=== PATIENT | female | born 2000 | race Caucasian/White ===

== ENCOUNTER → 2023-06-06 | Outpatient (CLI) | payer OTHER ==
--- NOTE | 2023-06-06 17:49 | XR ---
EXAMINATION TYPE: XR ankle complete RT DATE OF EXAM: 06/06/2023 COMPARISON: NONE HISTORY: Pain TECHNIQUE: Frontal, lateral and oblique images of the right ankle are obtained. Alignment of the COMPARISON: None. FINDINGS: There is no acute fracture/dislocation evident. The joint spaces appear within normal puentes its. The overlying soft tissue appears unremarkable. IMPRESSION: There is no acute fracture or dislocation seen.
== END | disposition home or self-care (01) ==
LOC: RADXRMAIN 15:20
PROVIDERS: ATTEND Registered Nurse
DX: M25.571 Pain in right ankle and joints of right foot (principal)

== ENCOUNTER 2024-07-31 03:22 | Outpatient (CLI) | payer BC ==
[2024-07-31] MEDS: LACTATED RINGERS 1,000 ML IV ONE ×3 (04:00→05:50)
[2024-07-31 05:12] LABS: Bacteria,Urine Few /hpf; Hyaline Casts,Urine 1 /lpf (0-2); Mucus,Urine Rare /hpf; RBC,Urine 1 /hpf (0-5); Squamous Epithelial Cell,Urine 11 /hpf (0-4); WBC,Urine 11 /hpf (0-5)
[2024-07-31 05:23] LABS: Color,Urine Yellow
[2024-07-31 05:24] LABS: Appearance,Urine Slightly Cloudy (Clear); Bilirubin,Urine Negative (Negative); Glucose,Urine (UA) Negative (Negative); Ketones,Urine 3+ (Negative); PH, Urine 6.5 (5.0-8.0); Protein,Urine 1+ (Negative); Specific Gravity,Urine 1.015 (1.001-1.035)
[2024-07-31 05:25] LABS: Blood,Urine Negative (Negative); Leukocyte Esterase,Urine Moderate (Negative); Nitrite,Urine Negative (Negative); Urobilinogen,Urine <2.0 mg/dL (<2.0)
[2024-07-31] MEDS: TERBUTALINE 1 MG/ML VIAL SQ STA ×2 (05:44→06:53)
[2024-07-31 07:28] VITALS: BP 142/91; PULSE 120; RESP 16; TEMP 97.1
--- NOTE | 2024-08-04 02:32 | P.MSEPDOC ---
Presenting Problems - Arrival Data Date of Arrival on Unit: 07/31/24 Time of Arrival on Unit: 03:22 Mode of Transport: Ambulatory - Complaint OB-Reason for Admission/Chief Complaint: Possible Onset of Labor Comment: Patient presents to triage with complaints of contractions that started around 0100 this morning about every minutes Medical History - Information : 1 Para: 0 Term: 0 : 0 Abortions: Spontaneous or Elective: 0 Number of Living Children: 0 - Gestational Age Gestational Age by OSMIN (wks/days): 36 Weeks and 5 Days Review of Systems - Review of Systems Constitutional: No problems Breast: No problems ENT: No problems Cardiovascular: No problems Respiratory: No problems Gastrointestinal: No problems Genitourinary: No problems Musculoskeletal: No problems Neurological: No problems Skin: No problems Vital Signs - Temperature Temperature: 97.1 F Temperature Source: Temporal Artery Scan - Pulse Pulse Oximetery Pulse Rate: 120 Pulse Assessment Method: Auscultation - Respirations Respiratory Rate: 16 Oxygen Delivery Method: Room Air O2 Sat by Pulse Oximetry: 98 - Blood Pressure Right Arm Blood Pressure: 142/91 Blood Pressure Mean: 108 Blood Pressure Source: Automatic Cuff Medical Screen Scoring - Cervical Exam Dilation (cm): 0 Membranes: Intact - Uterine Contractions Frequency From (mins): 1 Frequency To (mins): 2 Duration From (seconds): 30 Duration To (seconds): 70 Intensity: Moderate Resting: Soft to palpation - Assessment - Baby A Baseline FHR: 135 Heart Rate - NICHD Category: Category I (Normal) NST: Reactive Physician Notification - Physician Notified Physician Notified Date: 07/31/24 Physician Notified Time: 04:31 Physician: Aram Bojoqruez New Order Received: Yes - Notification Comment Comment: Rn spoke with Dr. Bojorquez regarding Patients HX, FHR, Contractions, cervical exam and Blood pressure. Dr. Bojorquez ordered a urinalysis, IV and bolus. Maternal Triage Index - Prompt/Priority 3 Prompt Priority 3: Yes Criteria Met for Priority 3: Patient presents to triage with complaints of contractions that started around 0100 this morning about every minutes Disposition - Disposition OB Disposition: Discharge to home Discharge Date: 07/31/24 Discharge Time: 06:50 I agree with the RN Medical Screening Exam: Yes Physician's MSE Comment: I have neither seen nor examined the patient. Case reviewed; plan agreed upon as documented in EMR&OBIX.: Yes Diagnosis: RELATED CONDITIONS, UNSPECIFIED, THIRD TRIMESTER
== END 2024-07-31 06:50 | disposition home or self-care (01) ==
LOC: MERGE 03:22 → FBPOP 03:22
PROVIDERS: ATTEND Obstetrics & Gynecology
DX: O47.03 False labor before 37 completed weeks of gestation, third trimester (principal); Z3A.36 36 weeks gestation of pregnancy
CPT/HCPCS: 59025; 96360; 96361; 96372; 36415; 81001; 87086; G0463; J3105; 96365; 99214

== ENCOUNTER 2024-08-19 15:34 | Inpatient (IN) | payer BC ==
[2024-08-19 18:59] LABS: Basophils % (A) 0 %; Eosinophils # (A) 0.2 k/uL (0-0.7); Eosinophils % (A) 2 %; HCT 36.7 % (34.0-46.0); HGB 12.3 gm/dL (11.4-16.0); Lymphocytes # (A) 1.8 k/uL (1.0-4.8); Lymphocytes % (A) 17 %; MCH 28.9 pg (25.0-35.0); MCHC 33.5 g/dL (31.0-37.0); MCV 86.3 fL (80.0-100.0); Mean Platelet Volume 12.3; Monocytes # (A) 0.5 k/uL (0-1.0); Monocytes % (A) 5 %; Neutrophils # (A) 8.1 k/uL (1.3-7.7); Neutrophils % (A) 76 %; Platelet Count 138 k/uL (150-450); RBC 4.25 m/uL (3.80-5.40); RDW 13.8 % (11.5-15.5); WBC 10.7 k/uL (3.8-10.6)
[2024-08-20] MEDS ORDERED: METHYLERGONOVINE 0.2 MG/ML 1 ML AMP IM PRN ×2 (00:04→17:05)
[2024-08-20] MEDS ORDERED: LIDOCAINE 0.5% (PF) 5 MG/ML (50 ML SDV) SQ PRN (00:04)
[2024-08-20] MEDS ORDERED: miSOPROStoL 200 MCG TAB PO PRN ×2 (00:04→17:05)
[2024-08-20] MEDS ORDERED: CARBOPROST TROMETHAMINE 250 MCG/ML 1 ML AMP IM PRN (00:04)
[2024-08-20] MEDS ORDERED: OXYTOCIN 10 UNIT/ML 1 ML VIAL IM PRN (00:04)
[2024-08-20] MEDS ORDERED: TRANEXAMIC 1,000 MG/100ML-NACL 1,000 MG in EMPTY BAG 1 BAG IV PRN (00:04)
[2024-08-20] MEDS ORDERED: TERBUTALINE 1 MG/ML VIAL SQ PRN (00:04)
[2024-08-20] MEDS ORDERED: miSOPROStoL 200 MCG TAB RECTAL PRN (00:04)
[2024-08-20] MEDS: NALBUPHINE 10 MG/ML (10 ML MDV) IV PRN (02:23)
[2024-08-20] MEDS: OXYTOCIN 30 UNITS/500 ML NS 30 UNIT in SALINE 1 500ML.BAG IV SCH (05:30)
[2024-08-20] MEDS: LACTATED RINGERS 1,000 ML IV SCH ×2 (05:30→20:46)
[2024-08-20] MEDS: AMPICILLIN 2,000 MG in SODIUM CHLORIDE 0.9% 100 ML IVPB ONE (05:35)
[2024-08-20] MEDS ORDERED: SODIUM CHLORIDE 0.9% 250 ML BAG ONE (08:42)
[2024-08-20] MEDS ORDERED: ROPIVACAINE 5 MG/ML 30 ML VIAL ONE (08:42)
[2024-08-20] MEDS ORDERED: fentaNYL (PF) 50 MCG/ML 5 ML AMP ONE (08:42)
[2024-08-20] MEDS: AMPICILLIN 1,000 MG in SODIUM CHLORIDE 0.9% 50 ML IVPB SCH (10:09)
[2024-08-20] MEDS ORDERED: OXYTOCIN 30 UNITS/500 ML NS BAG IV ONE (17:15)
[2024-08-20] MEDS ORDERED: ONDANSETRON 4 MG/2 ML VIAL ONE (17:15)
[2024-08-20] MEDS ORDERED: MORPHINE SULFATE (PF) 0.3 MG/0.3 ML SYR ONE (17:15)
--- NOTE | 2024-08-20 17:59 | P.OP ---
Date of Procedure: 08/20/24 Preoperative Diagnosis: IUP at 39 4/7 weeks, arrest of descent Postoperative Diagnosis: Same Procedure(s) Performed: Primary low-transverse section Anesthesia: epidural Surgeon: Marie Tucker Leather Cleaner #1: Kerry Ibarra Pathology: none sent Condition: stable Disposition: observation Indications for Procedure: 24-year-old 1 para 0 at 39-4/7 weeks that presented for induction of labor last evening. Dilapan was placed and patient did make progress through t he night. Dilapan fall out and patient was noted to be 4 cm, Pitocin augmentation of labor was begun. Patient did become uncomfortable and request epidural. Epidural was placed without difficulty by the anesthesia department. Patient underwent amniotomy and was noted to be 5 cm. Patient made slow progress through labor today. Patient progressed to complete dilation. Patient began pushing after approximately an hour and 1/2+ of pushing no descent of the head was appreciated, increasing caput formation was noted while the bony head remained at -1. Patient was counseled on exam and options were reviewed. Recommendation for primary given arrest of descent was discussed. Patient agreed, anesthesia into see patient will proceed with primary low- transverse section Operative Findings: Viable female infant in occiput posterior presentation delivered at 1729, weight of 8 pounds 10 ounces Description of Procedure: The patient was prepped and draped in the usual fashion after epidural anesthesia was found to be adequate. A Pfannenstiel incision was made and extended of the abdominal cavity without difficulty. The bladder peritoneum was elevated and incised and reflected distally. A 2 cm incision was made in the transverse plane of the lower uterine segment to enter the uterus at which time clear fluid was noted. The incision was extended in both directions using the bandage scissors. The head was encountered within the field and delivered up and through the incision where the nose and mouth were thoroughly suctioned. Remainder of the infant was delivered onto the surgical field where the cord was doubly clamped, cut, and the infant was passed for resuscitative measures with weight above. The placenta was delivered manually, intact, and was grossly normal with a grossly normal three-vessel cord. The uterus was exteriorized and the interior cavity of the uterus swept of any remaining placental and membranous fragments with a laparotomy sponge. The margins of the incision were grasped with Allis clamps and the incision closed in 2 layers. First layer was a running locking layer of 0 Vicryl from margin to margin followed by a second layer of imbricating 0 Vicryl from margin to margin. 1 lateral edge of the hysterotomy incision was noted to be bleeding therefore a glmhwz-ip-[id number] suture was used to obtain hemostasis, once hemostasis was achieved, the posterior cul-de-sac was suctioned with a guard and the uterine and ovarian findings are as noted above. The uterus was replaced within the abdominal cavity and the gutters swept of any remaining blood fluid or clot. The incision was again reexamined and hemostasis was noted to be excellent. Any small point of ble eding were made hemostatic with the Bovie. Once hemostasis was achieved the parietal peritoneum was loosely reapproximated. The layer of muscles were examined and made hemostatic with the Bovie. Attention was then turned to the fascia which was closed with a running 0 Vicryl proceeding from the lateral edge to the other. The subcutaneous tissues were irrigated, made hemostatic with the Bovie, and reapproximated with a running stitch of 30 Vicryl. The skin was reapproximated with 4-0 Vicryl. Estimated blood loss for the case was approximately 930 mL. All sponge instrument and needle counts are correct. There were no complications. The patient tolerated the procedure well and proceeded to the recovery room in stable condition. Both mother and are resting comfortably in recovery.
--- NOTE | 2024-08-20 17:59 | P.HPOB ---
History of Present Illness H&P Date: 08/19/24 Chief Complaint: IUP at 39-3/7 weeks This is a 24-year-old G1, P0 at 39 3/7 weeks that presents to labor and delivery for induction of labor. Patient has been receiving routine care with myself which has been essentially uncomplicated. Patient notes good mov ement. She notes an occasional contraction. Growth ultrasound was obtained approximately 1 week ago revealing an estimated weight of 8 pounds 4 ounces, vertex presentation. 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 History of Any Multi-Drug Resistant Organisms: None Reported Additional Past Surgical History / Comment(s): nephectomy Past Anesthesia/Blood Transfusion Reactions: No Reported Reaction Past Psychological History: No Psychological Hx Reported Smoking Status: Never smoker Past Alcohol Use History: None Reported Past Drug Use History: None Reported - Past Family History Mother Family Medical History: Hypertension Medications and Allergies Home Medications Medication Instructions Recorded Confirmed Type Vit No.179/Iron/Folic 1 each PO DAILY 07/31/24 08/19/24 History [ Tablet] Allergies Allergy/AdvReac Type Severity Reaction Status Date / Time No Known Allergies Allergy Verified 08/19/24 16:08 Exam Osteopathic Statement: *. No significant issues noted on an osteopathic structural exam other than those noted in the History and Physical/Consult. Vital Signs Temp Pulse Resp BP Pulse Ox 08/19/24 16:13 98.2 F 118 H 16 137/89 96 Intake and Output 08/19/24 08/19/24 08/19/24 06:59 14:59 22:59 Other: Weight 96.162 kg Targeted physical exam is performed this date General Is a well-nourished well- developed female in no acute distress, breathing appears nonlabored, abdomen is gravid, on cervical exam she is 1/50/-3 station, Dilapan is placed, 5 rods are placed without difficulty sterilely. heart tones noted to be category 1 and she is not julio Results Result Diagrams: 08/19/24 18:35 Assessment and Plan (1) Term Current Visit: Yes Status: Acute Code(s): Z34.90 - ENCNTR FOR SUPRVSN OF NORMAL , UNSP, UNSP TRIMESTER SNOMED Code(s): 06940224 Plan: 24-year-old G1, P0 at 39-3/7 weeks presents for induction of labor. Dilapan is placed. Will plan clear liquid diet after night. Patient's for analgesia are discussed including Nubain, nitrous, epidural should she go into active labor. Pitocin at 5 AM Rupture of membranes when appropriate. EFM/toco
[2024-08-20] MEDS: CITRIC ACID-SODIUM CITRATE 15 ML CUP PO ONE (18:02)
[2024-08-20] MEDS ORDERED: METOCLOPRAMIDE 5 MG/ML 2 ML VIAL IVP PRN (19:29)
[2024-08-20] MEDS ORDERED: diphenhydrAMINE 50 MG/ML 1 ML VIAL IVP PRN ×2 (19:29)
[2024-08-20] MEDS ORDERED: ONDANSETRON 4 MG/2 ML VIAL IVP PRN (19:29)
[2024-08-20] MEDS ORDERED: NALOXONE 0.4 MG/ML 1 ML VIAL IV PRN (19:29)
[2024-08-20] MEDS ORDERED: SIMETHICONE 80 MG CHEWABLE PO PRN (19:29)
[2024-08-20] MEDS ORDERED: ZOLPIDEM 5 MG TAB PO PRN (19:29)
[2024-08-20] MEDS ORDERED: OXYTOCIN 30 UNITS/500 ML NS 30 UNIT in SALINE 1 500ML.BAG IV SCH (19:29)
[2024-08-20] MEDS ORDERED: diphenhydrAMINE 25 MG CAP PO PRN (19:29)
[2024-08-20] MEDS ORDERED: diphenhydrAMINE 50 MG CAP PO PRN (19:29)
[2024-08-20] MEDS: SENNOSIDES-DOCUSATE SODIUM 1 EACH TAB PO SCH (19:51)
[2024-08-20] MEDS: ACETAMINOPHEN IV (For NPO) 1,000 MG in EMPTY BAG 1 BAG IVPB SCH (19:53)
[2024-08-20] MEDS: IBUPROFEN 800 MG TAB PO SCH (20:46)
[2024-08-20] MEDS: ACETAMINOPHEN IV (For NPO) 1,000 MG in EMPTY BAG 1 BAG IVPB ONE (20:49)
[2024-08-21] MEDS: ACETAMINOPHEN TAB 500 MG TAB PO SCH (00:45)
[2024-08-21] MEDS: IBUPROFEN IV 800 MG in SODIUM CHLORIDE 0.9% 250 ML IV SCH (00:54)
[2024-08-21 06:28] LABS: Basophils % (A) 0 %; Eosinophils # (A) 0.1 k/uL (0-0.7); Eosinophils % (A) 0 %; HCT 33.7 % (34.0-46.0); HGB 11.2 gm/dL (11.4-16.0); Lymphocytes # (A) 1.9 k/uL (1.0-4.8); Lymphocytes % (A) 12 %; MCH 29.2 pg (25.0-35.0); MCHC 33.2 g/dL (31.0-37.0); MCV 87.9 fL (80.0-100.0); Mean Platelet Volume 13.4; Monocytes # (A) 0.7 k/uL (0-1.0); Monocytes % (A) 5 %; Neutrophils # (A) 12.7 k/uL (1.3-7.7); Neutrophils % (A) 82 %; RBC 3.83 m/uL (3.80-5.40); RDW 14.1 % (11.5-15.5); WBC 15.5 k/uL (3.8-10.6)
--- NOTE | 2024-08-21 06:28 | P.PN ---
Progress Note - Text Adequate analgesia. No complications from epidural Duramorph.
[2024-08-21 08:26] LABS: Large Platelets Present
[2024-08-21 08:27] LABS: Platelet Count 99 k/uL (150-450)
--- NOTE | 2024-08-21 08:32 | P.PNOBGPC ---
Subjective - Subjective Principal diagnosis: Postop day 1, primary Interval history: Patient is doing well this morning. She is ambulating and voiding without difficulty. She states her pain is well-controlled. She denies concerns. She is breast-feeding without difficulty. Lochia is minimal. Patient reports: Reports appetite normal, Reports voiding normally, Reports pain well controlled, Reports ambulating normally [place]: doing well, nursing well Objective - Vital Signs Latest vital signs: Vital Signs Temp Pulse Resp BP Pulse Ox 08/21/24 08:06 98.4 F 88 16 124/86 08/21/24 04:00 97.7 F 73 16 108/74 96 08/21/24 00:00 98.2 F 73 16 126/78 96 08/20/24 19:58 98.3 F 99 18 136/80 100 08/20/24 19:43 100 18 144/83 100 08/20/24 19:28 103 H 16 138/65 08/20/24 19:13 101 H 16 156/68 100 08/20/24 18:58 100 F H 94 16 140/66 100 08/20/24 18:43 16 98 08/20/24 18:28 103 H 16 125/84 98 08/20/24 18:13 101 H 16 133/71 99 08/20/24 17:58 99.9 F H 113 H 16 118/72 98 Intake and Output 08/20/24 08/21/24 08/21/24 22:59 06:59 14:59 Intake Total 600 Output Total 1130 1200 600 Balance -1130 -600 -600 Intake: Oral 600 Output: Urine 900 1200 600 Uretheral (Lora) 1200 Output, Quantitative 230 Blood Loss Other: Voiding Method Indwelling Catheter # Voids 1 - Exam Extremities: Present: normal, edema Abdomen: Present: normal appearance, soft Incision: Present: normal, dry Uterus: Present: normal, firm - Labs Labs: Abnormal Lab Results - Last 24 Hours (Table) 08/21/24 Range/Units 06:02 WBC 15.5 H (3.8-10.6) k/uL Hgb 11.2 L (11.4-16.0) gm/dL Hct 33.7 L (34.0-46.0) % Plt Count 99 L (150-450) k/uL Neutrophils # 12.7 H (1.3-7.7) k/uL Assessment and Plan (1) Term Current Visit: Yes Status: Acute Code(s): Z34.90 - ENCNTR FOR SUPRVSN OF NORMAL , UNSP, UNSP TRIMESTER SNOMED Code(s): 25280125 (2) Arrest of descent, delivered, current hospitalization Current Visit: Yes Status: Acute Code(s): O62.1 - SECONDARY UTERINE INERTIA SNOMED Code(s): 07160735 (3) Occiput posterior presentation of fetus Current Visit: Yes Status: Acute Code(s): O64.0XX0 - OBSTRUCTED LABOR DUE TO INCMPL ROTATION OF HEAD, UNSP SNOMED Code(s): 36123702 (4) Status post primary low transverse section Current Visit: Yes Status: Acute Code(s): Z98.891 - HISTORY OF UTERINE SCAR FROM PREVIOUS SURGERY SNOMED Code(s): 018836697 Plan: Patient is doing well postop, we will plan to continue routine postoperative care and anticipate discharge home tomorrow.
[2024-08-21] MEDS: PRENATAL VIT-IRON-FOLIC ACID 1 EACH TABLET PO SCH (12:24)
[2024-08-22 07:56] VITALS: BP 144/88; PULSE 97; RESP 17; TEMP 98.1
--- NOTE | 2024-08-22 09:31 | P.DS ---
Providers Date of admission: 08/19/24 15:34 Expected date of discharge: 08/22/24 Attending physician: Marie Tucker Primary care physician: Stated None - Discharge Diagnosis(es) (1) Term Current Visit: Yes Status: Acute (2) Arrest of descent, delivered, current hospitalization Current Visit: Yes Status: Acute (3) Occiput posterior presentation of fetus Current Visit: Yes Status: Acute (4) Status post primary low transverse section Current Visit: Yes Status: Acute Hospital Course: 24-year-old 1 now para 1 that presented to labor and delivery at 39-4/7 weeks for induction of labor. Patient had been receiving routine care which had been essentially uncomplicated. Patient had Dilapan placed and patient did make good progress through the night, Dilapan did fall out and patient was noted to be 4 cm through the night. Pitocin augmentation of labor was begun. Patient underwent amniotomy and clear fluid was obtained. Patient did request epidural. Epidural was placed without difficulty by the anesthesia department. Patient progressed to complete dilation and began pushing. After approximately an hour and a half of pushing patient requested to take a break and on examination increasing caput formation was noted with no descent of the bony head beyond -1 station. Patient was counseled on exam and options were reviewed. Patient was counseled she could continue pushing or we could proceed with primary . Patient wished to proceed with primary after discussion and questions were answered. Patient was taken back to the operating suite where primary low-transverse section was completed without difficulty. A viable female infant was delivered at 1729, weight of 8 pounds 10 ounces in occiput posterior presentation. Patient's postoperative course has been uneventful. In this postoperative day #2 she is ambulating and voiding without difficulty. She is tolerating a regular diet without nausea or vomiting. She states her pain is well- controlled. She denies concerns. She would like discharge home. Patient Condition at Discharge: Good Plan - Discharge Summary New Discharge Prescriptions: No Action Vit No.179/Iron/Folic [ Tablet] 1 each PO DAILY Discharge Medication List Vit No.179/Iron/Folic [ Tablet] 1 each PO DAILY 07/31/24 [History] Follow up Appointment(s)/Referral(s): Marie Tucker DO [Doctor of Osteopathic Medicine] - 10/07/24 11:15 am (Post C/S Appointment 09-02-2024 at 11am) Patient Instructions/Handouts: (DC), (GEN) Activity/Diet/Wound Care/Special Instructions: No intercourse, or tub baths. No heavy lifting greater than a gallon of milk. No driving for two weeks. Call with any fever, shakes or chills, with any pain not alleviated by over the counter meds, or with any questions or concerns. [id number] ibuprofen 600 mg or 3 tablets every 6 hours as needed for pain. Discharge Disposition: HOME SELF-CARE
== END 2024-08-22 13:25 | disposition home or self-care (01) | DRG 788 ==
LOC: 4FBP 15:34 → MERGE 16:00
PROVIDERS: ADMIT Obstetrics & Gynecology Obstetrics; ATTEND Obstetrics & Gynecology Obstetrics
PROC: 10907ZC Drainage of Amniotic Fluid, Therapeutic from Products of Conception, Via Natural or Artificial Opening (ICD-10-PCS; 2024-08-19)
PROC: 3E0P7VZ Introduction of Hormone into Female Reproductive, Via Natural or Artificial Opening (ICD-10-PCS; 2024-08-19)
PROC: 3E033VJ Introduction of Other Hormone into Peripheral Vein, Percutaneous Approach (ICD-10-PCS; 2024-08-19)
PROC: 10D00Z1 Extraction of Products of Conception, Low, Open Approach (ICD-10-PCS; principal; 2024-08-20 17:20)
DX: O66.9 Obstructed labor, unspecified (principal); O62.1 Secondary uterine inertia; Z37.0 Single live birth; Z3A.39 39 weeks gestation of pregnancy
CPT/HCPCS: 85025; 86850; 86900; 86901